=== PATIENT | female | born 1970 | race Two or more races ===

== ENCOUNTER 2022-03-03 18:25 | Inpatient (IN) | payer OTHER ==
[~2022-03-03] VITALS: Ht 165.1 cm; Wt 69.0 kg
[2022-03-03 19:38] LABS: BASOPHILS % (AUTO) 0.4 % (0.0-2.0); EOSINOPHILS % (AUTO) 1.2 % (1.0-6.0); HEMATOCRIT 33.2 % (36-46); HEMOGLOBIN 11.4 g/dL (12.0-16.0); LYMPHOCYTES # (AUTO) 1.1 K/uL (1.0-4.8); LYMPHOCYTES % (AUTO) 13.1 % (22.0-44.0); MEAN CORPUSCULAR HEMOGLOBIN 30.4 pg (26.0-34.0); MEAN CORPUSCULAR HGB CONC 34.4 G/dL (31.0-37.0); MEAN CORPUSCULAR VOLUME 88 fL (80-100); MONOCYTES # (AUTO) 0.7 K/uL (0.1-1.0); MONOCYTES % (AUTO) 8.8 % (2.0-9.0); NEUTROPHILS # (AUTO) 6.4 K/uL (1.8-7.7); NEUTROPHILS % (AUTO) 76.5 % (40.0-70.0); PLATELET COUNT (AUTO) 184 K/uL (150-450); RED BLOOD CELL COUNT(AUTO) 3.75 MIL/uL (4.00-5.20); RED CELL DISTRIBUTION WIDTH 12.9 % (11.5-14.5)
[2022-03-03 19:51] LABS: ANION GAP 9 mmol/L (8-16); CALCIUM, TOTAL 8.3 mg/dL (8.8-10.5); CARBON DIOXIDE 26 mmol/L (22-29); CHLORIDE 105 mmol/L (98-107); CREATININE 0.46 mg/dL (0.60-1.30); GLOMERULAR FILTR. RATE CALC > 60 mL/min (>60); GLUCOSE,RANDOM 97 mg/dL (70-110); POTASSIUM 3.4 mmol/L (3.5-5.1); SODIUM SERUM 140 mmol/L (136-145); UREA NITROGEN, BLOOD 11 mg/dL (7-18)
[2022-03-03 19:58] LABS: ALANINE AMINOTRANSFERASE 55 U/L (12-78); ALBUMIN 3.1 g/dL (3.4-5.0); ALKALINE PHOSPHATASE 57 U/L (46-116); ASPARTATE AMINOTRANSFERASE 64 U/L (15-37); BILIRUBIN,TOTAL 0.4 mg/dL (0.1-1.0); TOTAL PROTEIN, SERUM 6.2 g/dL (6.4-8.2)
[2022-03-03 20:43] LABS: COVID AG,FIA SOURCE NASAL SWAB
[2022-03-03] MEDS ORDERED: POTASSIUM CHLORIDE 10% 40 MEQ/30 ML LIQUID UDCUP PO ONE (21:00)
[2022-03-03] MEDS ORDERED: ONDANSETRON HCL 4 MG/2 ML VIAL IVP PRN (21:00)
[2022-03-03 21:27] LABS: PROTHROMBIN TIME 10.3 SEC (9.4-11.6)
[2022-03-03 23:47] VITALS: BP 119/69
[2022-03-04] MEDS: HEPARIN SODIUM,PORCINE 5,000 UNITS/ML VIAL SQ SCH ×3 (00:26→17:30)
[2022-03-04 05:11] LABS: APPEARANCE,URINE CLEAR (CLEAR); BILIRUBIN,URINE NEGATIVE (NEGATIVE); GLUCOSE, URINE (UA) NEGATIVE (NEGATIVE); LEUKOCYTE ESTERASE ,URINE NEGATIVE (NEGATIVE); NITRATE,URINE NEGATIVE (NEGATIVE); OCCULT BLOOD,URINE SMALL (NEGATIVE); PH,URINE 6.5 (5.0-8.0); PROTEIN,URINE NEGATIVE (NEGATIVE); SPECIFIC GRAVITIY, URINE 1.014 (1.003-1.030)
[2022-03-04 05:17] LABS: AMPHET/METH SCREEN,URINE NEGATIVE (NEGATIVE); BARBITURATE SCREEN, URINE NEGATIVE (NEGATIVE); BENZODIAZEPINES SCREEN,URINE NEGATIVE (NEGATIVE); CANNABINOID SCREEN,URINE POSITIVE (NEGATIVE); COCAINE SCREEN,URINE NEGATIVE (NEGATIVE); METHADONE SCREEN, URINE NEGATIVE (NEGATIVE); OPIATE SCREEN,URINE NEGATIVE (NEGATIVE)
[2022-03-04 05:21] LABS: PHENCYCLIDINE SCREEN,URINE NEGATIVE (NEGATIVE)
[2022-03-04 05:35] LABS: BACTERIA,URINE Rare /HPF (None Seen); SQUAMOUS EPITHELIAL CELL,UR Few /LPF (None Seen); WBC,URINE 0-2 /HPF (0-5); YEAST,URINE Few /HPF (None Seen)
[2022-03-04] MEDS: ACETAMINOPHEN 325 MG TABLET PO PRN (07:50)
[2022-03-04 08:00] VITALS: BP 132/77
[2022-03-04] MEDS ORDERED: HALOPERIDOL LACTATE 5 MG/ML VIAL IM ONE (09:45)
[2022-03-04] MEDS: OLANZapine 5 MG TABLET PO SCH ×2 (13:21→21:19)
[2022-03-04 16:04] VITALS: BP 108/72
[2022-03-04 21:17] VITALS: BP 129/70
[2022-03-05] MEDS: HEPARIN SODIUM,PORCINE 5,000 UNITS/ML VIAL SQ SCH ×4 (00:33→23:38)
[2022-03-05 05:14] VITALS: BP 126/69
[2022-03-05 07:22] VITALS: BP 124/72
[2022-03-05] MEDS: OLANZapine 5 MG TABLET PO SCH ×2 (08:45→19:56)
[2022-03-05 15:10] VITALS: BP 122/70
[2022-03-05 19:46] VITALS: BP 136/79
[2022-03-05] MEDS: ACETAMINOPHEN 325 MG TABLET PO PRN (19:56)
[2022-03-06 03:46] VITALS: BP 113/68
[2022-03-06] MEDS: HALOPERIDOL 5 MG TABLET PO PRN ×2 (04:58→18:46)
[2022-03-06 07:24] VITALS: BP 121/77
[2022-03-06] MEDS: OLANZapine 5 MG TABLET PO SCH ×2 (08:03→20:12)
[2022-03-06] MEDS: HEPARIN SODIUM,PORCINE 5,000 UNITS/ML VIAL SQ SCH ×3 (08:06→23:13)
[2022-03-06 15:07] VITALS: BP 120/74
[2022-03-06 19:20] VITALS: BP 132/91
[2022-03-06] MEDS: HydrOXYzine PAMOATE 50 MG CAPSULE PO PRN (20:12)
[2022-03-06] MEDS: ACETAMINOPHEN 325 MG TABLET PO PRN (20:12)
[2022-03-07] MEDS: HALOPERIDOL 5 MG TABLET PO PRN ×2 (00:20→09:39)
[2022-03-07] MEDS: HydrOXYzine PAMOATE 50 MG CAPSULE PO PRN (00:20)
[2022-03-07 04:28] VITALS: BP 108/68
[2022-03-07] MEDS: OLANZapine 5 MG TABLET PO SCH (08:00)
[2022-03-07] MEDS: HEPARIN SODIUM,PORCINE 5,000 UNITS/ML VIAL SQ SCH (08:00)
[2022-03-07] MEDS ORDERED: OLAN5TAB52 PO (12:07)
== END 2022-03-07 13:45 | DRG 641 ==
LOC: EMS 18:25 → 6S 23:31
PROVIDERS: ADMIT Internal Medicine; ATTEND Internal Medicine
DX: E87.6 Hypokalemia (principal); R45.851 Suicidal ideations; F29 Unspecified psychosis not due to a substance or known physiological condition; F43.10 Post-traumatic stress disorder, unspecified; M79.7 Fibromyalgia; D64.9 Anemia, unspecified; Z20.822 Contact with and (suspected) exposure to COVID-19; F12.10 Cannabis abuse, uncomplicated; Z78.1 Physical restraint status
CPT/HCPCS: 71045; 80053; 81001; 84132; 84484; 85025; 85610; 85730; 93005; 99285; G0480; J1630; J1644; J2405; 36415-L1; 36415-TC

== ENCOUNTER 2022-03-15 08:48 | Inpatient (IN) | payer OTHER ==
[~2022-03-15] VITALS: Ht 154.9 cm; Wt 54.5 kg
[~2022-03-15 08:48] MED LIST: OLAN5TAB52 PO
[2022-03-15 09:39] LABS: BASOPHILS % (AUTO) 1.4 % (0.0-2.0); EOSINOPHILS % (AUTO) 3.3 % (1.0-6.0); HEMOGLOBIN 11.4 g/dL (12.0-16.0); LYMPHOCYTES # (AUTO) 0.9 K/uL (1.0-4.8); LYMPHOCYTES % (AUTO) 17.8 % (22.0-44.0); MEAN CORPUSCULAR HEMOGLOBIN 30.4 pg (26.0-34.0); MEAN CORPUSCULAR HGB CONC 34.7 G/dL (31.0-37.0); MEAN CORPUSCULAR VOLUME 88 fL (80-100); MONOCYTES # (AUTO) 0.6 K/uL (0.1-1.0); MONOCYTES % (AUTO) 10.8 % (2.0-9.0); NEUTROPHILS # (AUTO) 3.5 K/uL (1.8-7.7); NEUTROPHILS % (AUTO) 66.7 % (40.0-70.0); PLATELET COUNT (AUTO) 353 K/uL (150-450); RED BLOOD CELL COUNT(AUTO) 3.77 MIL/uL (4.00-5.20); RED CELL DISTRIBUTION WIDTH 12.9 % (11.5-14.5)
[2022-03-15 09:50] LABS: ANION GAP 11 mmol/L (8-16); CALCIUM, TOTAL 8.9 mg/dL (8.8-10.5); CARBON DIOXIDE 27 mmol/L (22-29); CHLORIDE 105 mmol/L (98-107); CREATININE 0.47 mg/dL (0.60-1.30); GLOMERULAR FILTR. RATE CALC > 60 mL/min (>60); GLUCOSE,RANDOM 93 mg/dL (70-110); POTASSIUM 3.7 mmol/L (3.5-5.1); SODIUM SERUM 143 mmol/L (136-145); UREA NITROGEN, BLOOD 10 mg/dL (7-18)
[2022-03-15 09:56] LABS: ALANINE AMINOTRANSFERASE 31 U/L (12-78); ALBUMIN 3.4 g/dL (3.4-5.0); ALKALINE PHOSPHATASE 148 U/L (46-116); ASPARTATE AMINOTRANSFERASE 16 U/L (15-37); BILIRUBIN,TOTAL 0.4 mg/dL (0.1-1.0); TOTAL PROTEIN, SERUM 6.8 g/dL (6.4-8.2)
[2022-03-15 10:57] LABS: AMPHET/METH SCREEN,URINE NEGATIVE (NEGATIVE); BARBITURATE SCREEN, URINE NEGATIVE (NEGATIVE); BENZODIAZEPINES SCREEN,URINE NEGATIVE (NEGATIVE); CANNABINOID SCREEN,URINE POSITIVE (NEGATIVE); COCAINE SCREEN,URINE NEGATIVE (NEGATIVE); METHADONE SCREEN, URINE NEGATIVE (NEGATIVE); OPIATE SCREEN,URINE NEGATIVE (NEGATIVE)
[2022-03-15 10:58] LABS: PHENCYCLIDINE SCREEN,URINE NEGATIVE (NEGATIVE)
[2022-03-15 12:53] LABS: COVID AG,FIA SOURCE NASAL SWAB
[2022-03-15] MEDS ORDERED: HYDR50CA7 PO (14:01)
[2022-03-15] MEDS ORDERED: HYDR-4808 PO (14:01)
[2022-03-15] MEDS ORDERED: CloNIDine HCL 0.1 MG TABLET PO PRN (15:15)
[2022-03-15] MEDS ORDERED: MAGNESIUM HYDROXIDE SUSPENSION 30 ML UDCUP PO PRN (15:15)
[2022-03-15] MEDS ORDERED: LOPERAMIDE HCL 2 MG CAPSULE PO PRN (15:15)
[2022-03-15] MEDS ORDERED: ALBUTEROL SULFATE HFA 90 MCG/PUFF 8 GM INHALER IH PRN (15:15)
[2022-03-15] MEDS ORDERED: NICOTINE 14 MG/24 HOUR PATCH TD PRN (15:15)
[2022-03-15] MEDS ORDERED: DOCUSATE SODIUM 100 MG CAPSULE PO PRN (15:15)
[2022-03-15] MEDS ORDERED: PETROLATUM,WHITE 28 GM JELLY TP PRN (15:15)
[2022-03-15] MEDS ORDERED: GuaiFENesin/D-METHORPHAN [SUGAR-FREE] 200-20MG/10 ML SYRUP UDCUP PO PRN (15:15)
[2022-03-15] MEDS ORDERED: MAG HYDROX/AL HYDROX/SIMETH ES 30 ML SUSPENSION UDCUP PO PRN (15:15)
[2022-03-15] MEDS ORDERED: ONDANSETRON HCL 4 MG TABLET PO PRN (15:15)
[2022-03-15 16:15] VITALS: BP 105/66
[2022-03-15 19:28] VITALS: BP 112/77
[2022-03-16 03:22] VITALS: BP 125/74
[2022-03-16 10:19] VITALS: BP 113/79
[2022-03-16 17:13] VITALS: BP 108/77
[2022-03-16 20:06] VITALS: BP 123/69
[2022-03-16] MEDS ORDERED: DiphenhydrAMINE HCL 25 MG CAPSULE PO SCH (21:00)
[2022-03-16] MEDS: RisperiDONE 0.5 MG TABLET PO SCH (21:49)
[2022-03-16] MEDS: ACETAMINOPHEN 325 MG TABLET PO PRN (21:49)
[2022-03-16] MEDS: IBUPROFEN 400 MG TABLET PO PRN (23:33)
[2022-03-17 05:20] VITALS: BP 129/68
[2022-03-17 08:00] VITALS: BP 115/72
[2022-03-17] MEDS: RisperiDONE 0.5 MG TABLET PO SCH (08:07)
[2022-03-17] MEDS: BusPIRone HCL 5 MG TABLET PO SCH ×2 (14:15→20:19)
[2022-03-17 15:39] VITALS: BP 110/76
[2022-03-17] MEDS: RisperiDONE 1 MG TABLET PO SCH (20:19)
[2022-03-17 20:32] VITALS: BP 113/70
[2022-03-18] MEDS: ACETAMINOPHEN 325 MG TABLET PO PRN (01:44)
[2022-03-18 04:55] VITALS: BP 114/62
[2022-03-18 07:51] VITALS: BP 110/75
[2022-03-18] MEDS: RisperiDONE 1 MG TABLET PO SCH ×2 (09:20→20:00)
[2022-03-18] MEDS: BusPIRone HCL 5 MG TABLET PO SCH ×2 (09:20→20:00)
[2022-03-18 15:47] VITALS: BP 101/75
[2022-03-18 19:35] VITALS: BP 116/55
[2022-03-18] MEDS: IBUPROFEN 400 MG TABLET PO PRN (22:06)
[2022-03-19 04:15] VITALS: BP 105/56
[2022-03-19 08:03] VITALS: BP 111/73
[2022-03-19] MEDS: BusPIRone HCL 5 MG TABLET PO SCH ×3 (08:17→20:13)
[2022-03-19] MEDS: RisperiDONE 1 MG TABLET PO SCH ×2 (08:18→20:10)
[2022-03-19 16:19] VITALS: BP 111/71
[2022-03-19] MEDS: IBUPROFEN 400 MG TABLET PO PRN (20:10)
[2022-03-19 20:31] VITALS: BP 113/74
[2022-03-20 04:40] VITALS: BP 117/77
[2022-03-20] MEDS: RisperiDONE 1 MG TABLET PO SCH ×2 (08:00→19:49)
[2022-03-20 08:11] VITALS: BP 110/73
[2022-03-20] MEDS: BusPIRone HCL 5 MG TABLET PO SCH ×2 (09:00→20:10)
[2022-03-20 16:16] VITALS: BP 119/75
[2022-03-20] MEDS ORDERED: BUSP5TAB20 PO (17:37)
[2022-03-20] MEDS ORDERED: RISP1TAB48 PO (17:38)
[2022-03-20 19:45] VITALS: BP 105/68
== END 2022-03-20 20:45 | DRG 885 ==
LOC: EMS 08:48 → 6S 15:02
PROVIDERS: ADMIT Internal Medicine; ATTEND Internal Medicine
DX: F29 Unspecified psychosis not due to a substance or known physiological condition (principal); D64.9 Anemia, unspecified; F31.9 Bipolar disorder, unspecified; F12.10 Cannabis abuse, uncomplicated; F25.9 Schizoaffective disorder, unspecified; Z20.822 Contact with and (suspected) exposure to COVID-19
CPT/HCPCS: 80053; 85025; 87081; 99285; G0480